=== PATIENT | female | born 1955 | race African-American/Black ===

== ENCOUNTER 2023-04-22 08:25 | Day surgery (SDC) | payer OTHER ==
[2023-04-21 16:31] VITALS: BMI 25.8
[2023-04-22] MEDS ORDERED: NEO/POLYMYX B SULF/DEXAMETH OPHTHALMIC 5ML BOTTLE ONE (08:41)
[2023-04-22] MEDS ORDERED: CARBACHOL 0.01% INTRA-OCULAR 1.5 ML VIAL ONE (08:41)
[2023-04-22] MEDS ORDERED: BSS (NA/CA/MG/K) BALANCED SALT SOLUTION OPHTH SOLN 15 ML BOTTLE ONE (08:41)
[2023-04-22] MEDS ORDERED: TETRACAINE 0.5% OPHTH SOLN 2 ML BOTTLE ONE (08:41)
[2023-04-22] MEDS: CYCLOPENTOLATE 2% OPHTH SOLN 2 ML BOTTLE ONE ×3 (09:25→09:35)
[2023-04-22] MEDS: TROPICAMIDE 1% OPHTH SOLN 15 ML BOTTLE ONE ×3 (09:25→09:35)
[2023-04-22] MEDS: PHENYLEPHRINE 2.5% OPTHALMIC DROP 2ML BOTTLE ONE ×3 (09:25→09:35)
[2023-04-22] MEDS: CIPROFLOXACIN 0.3% EYE DROPS 5 ML BOTTLE ONE ×3 (09:25→09:35)
[2023-04-22] MEDS ORDERED: MIDAZOLAM HCL 2 MG/2 ML SINGLE DOSE VIAL ONE (10:38)
[2023-04-22] MEDS ORDERED: ONDANSETRON 4 MG/2 ML VIAL ONE ×2 (10:43→11:06)
[2023-04-22 16:57] VITALS: TEMP 97
[2023-04-22 17:04] VITALS: BP 101/86; PULSE 73; RESP 12
== END 2023-04-22 11:45 | disposition home or self-care (01) ==
LOC: FASU 08:25
PROVIDERS: ATTEND Ophthalmology
PROC: 08RK3JZ Replacement of Left Lens with Synthetic Substitute, Percutaneous Approach (ICD-10-PCS; principal; 2023-04-22 10:38)
DX: H26.8 Other specified cataract (principal)
CPT/HCPCS: 66984; V2632